=== PATIENT | female | born 1995 | race Caucasian/White ===

== ENCOUNTER → 2017-02-11 | Outpatient (CLI) | payer MEDICAID ==
[~2017-02-11] MED LIST: AMOXIL500 M1 PO; BIRTH CONTROL PO; FLONASE 50 MCG16 GM; GILDESS FE 1/201 TAB PO; KEFLEX 250MG.250 MG PO; LORTAB 5/500 501 TAB PO; NORCO 325 MG-51 TAB PO; RONDEC 4 MG/5118 ML PO; SPRINTEC 35 MCG1 TAB PO; SYNTHROID 0.10.15 MG PO; TAMIFLU 75MG CA75 MG PO; TESSALON PERLE200 MG PO; TRAMADOL 50MG T50 MG PO; TYLENOL W/CODEI1 TA2 PO; ZITHROMAX Z PA250 MG PO
== END ==
LOC: LAB 10:06
DX: E03.9 Hypothyroidism, unspecified (principal)

== ENCOUNTER → 2017-03-01 | Outpatient (CLI) | payer MEDICAID ==
--- NOTE | 2017-03-01 10:22 | RADIOLOGY REPORT PS360 ---
US PELVIS-TRANSVAGINAL ONLY HISTORY: PELVIC PAIN, DUB ORDERING PHYSICIAN: Madhu Manuel MD PATIENT AGE: 21 years COMPARISON: None FINDINGS: UTERUS: The uterus measures 7 x 3 x 4.5 cm. Combined endometrial thickness is 5 mm. No uterine mass evident. RIGHT OVARY: 2.5 x 1.9 cm containing a 1.5 cm cyst LEFT OVARY: 2.7 x 1.9 cm with small follicles CUL-DE-SAC FLUID: No cul-de-sac fluid apparent OTHER FINDINGS: None IMPRESSION: Unremarkable pelvic ultrasound
== END ==
LOC: RAD 09:00
DX: R10.9 Unspecified abdominal pain (principal); N92.0 Excessive and frequent menstruation with regular cycle